=== PATIENT | male | born 1980 | race Caucasian/White ===

== ENCOUNTER 2017-04-03 20:07 | Emergency (ER) | payer OTHER ==
[~2017-04-03] VITALS: Ht 193 cm; Wt 83.2 kg
[2017-04-03 20:11] VITALS: BP 148/84; TEMP 97.6
[2017-04-03 21:46] VITALS: PULSE 87
== END 2017-04-03 21:47 | disposition home or self-care (01) ==
LOC: COL.ER 20:07
DX: S01.81XA Laceration without foreign body of other part of head, initial encounter (principal); Z23 Encounter for immunization; W21.07XA Struck by softball, initial encounter; Y92.320 Baseball field as the place of occurrence of the external cause; Y93.64 Activity, baseball

== ENCOUNTER 2017-04-10 16:27 | Emergency (ER) | payer OTHER ==
[2017-04-10 16:40] VITALS: BP 160/88; PULSE 80
== END 2017-04-10 16:43 | disposition home or self-care (01) ==
LOC: COL.ER 16:27
DX: Z48.02 Encounter for removal of sutures (principal)